=== PATIENT | male | born 1960 | race American Indian/Alaskan Native ===

== ENCOUNTER 2022-01-17 07:40 | Emergency (ER) | payer SELFPAY ==
[2022-01-17 11:36] LABS: Hematocrit 41.1 % (35.5-45.6); Hemoglobin 13.3 gm/dl (11.8-15.2); Mean Corpuscular HGB Conc 32 % (32-34); Mean Corpuscular Volume 92 fl (84-94); Platelet Count 190 K/mm3 (140-440); Red Blood Count 4.48 M/mm3 (3.65-5.03); Red Cell Distribution Width 13.1 % (13.2-15.2)
[2022-01-17 11:47] LABS: Alanine Aminotransferase 19 units/L (7-56); Albumin 4.1 g/dL (3.9-5); BUN/Creatinine Ratio 9; Blood Urea Nitrogen 7 mg/dL (9-20); Hemolysis Index 5
--- NOTE | 2022-01-17 11:49 | Cat Scan Report ---
CT HEAD WITHOUT CONTRAST INDICATION / CLINICAL INFORMATION: seizure after drug use. TECHNIQUE: All CT scans at this location are performed using CT dose reduction for ALARA by means of automated exposure control. COMPARISON: None available. FINDINGS: BRAIN PARENCHYMA: No acute intracranial hemorrhage. No evidence of recent infarct. No mass effect or midline shift. VENTRICULAR SYSTEM/EXTRA-AXIAL SPACES: Ventricles are normal for age. No extra-axial fluid collection . ORBITS: Normal as visualized. SKELETAL SYSTEM/SOFT TISSUES: Normal bones and soft tissues. PARANASAL SINUSES/MASTOID AIR CELLS: No significant abnormality. ADDITIONAL FINDINGS: None. IMPRESSION: 1. No acute intracranial abnormality. Signer Name: Mckinley Bergeron MD Signed: 01/17/2022 11:45 AM Workstation Name: [id number]
[2022-01-17 12:31] LABS: Band Neutrophils # (Manual) 0.2 K/mm3; Basophils % (Manual) 0 % (0.0-1.8); Eosinophils % (Manual) 0 % (0.0-4.3); Platelet Estimate Consistent w Auto; Total Cells Counted 100
--- NOTE | 2022-01-17 13:42 | Emergency Department Report ---
ED Altered Mental Status HPI - General Chief Complaint: Seizure Stated Complaint: SEIZURE/SUBSTANCE ABUSE/SEDETED Time Seen by Provider: 01/17/22 09:04 Source: patient, EMS Mode of arrival: Stretcher Limitations: No Limitations - History of Present Illness Initial Comments: 61-year-old male with no known past medical history presents to the hospital aft er a seizure. reports that this happened after using crack. Patient also drinks beer daily. No history of alcohol withdrawal tremors or seizures. Patient was postictal and combative upon EMS arrival and received IM Versed 5 mg. At time of my evaluation he denies any pain or symptoms. He is back to baseline. - Related Data Allergies Allergy/AdvReac Type Severity Reaction Status Date / Time No Known Allergies Allergy Verified 01/17/22 07:49 ED Review of Systems ROS: Stated complaint: SEIZURE/SUBSTANCE ABUSE/SEDETED Other details as noted in HPI Comment: All other systems reviewed and negative ED Past Medical Hx - Past Medical History Additional medical history: UNKNOWN - Social History Smoking Status: Unknown if ever smoked Substance Use Type: Cocaine ED Physical Exam - General Limitations: No Limitations - Other Other exam information: General: No acute distress Head: Atraumatic Eyes: normal appearance ENT: Moist mucous membranes Neck: Normal appearance, no midline tenderness Chest: Clear to auscultation bilaterally CV: Regular rate and rhythm Abdomen: Soft, normal bowel sounds, nontender, nondistended, no rebound or gua rding Back: Normal inspection Extremity: Normal inspection, full range of motion Neuro: Alert O x 3, no facial asymmetry, speech clear, no gross motor sensory deficit Psych: Appropriate behavior Skin: No rash ED Course Vital Signs 01/17/22 01/17/22 01/17/22 07:47 08:05 08:07 Temperature Pulse Rate 68 64 Respiratory 12 12 Rate Blood Pressure 100/52 112/55 [Left] O2 Sat by Pulse 99 96 95 Oximetry 01/17/22 13:46 Temperature 97.8 F Pulse Rate Respiratory Rate Blood Pressure [Left] O2 Sat by Pulse Oximetry - Lab Data Result diagrams: 01/17/22 10:23 01/17/22 10:23 Lab Results 01/17/22 01/17/22 01/17/22 Range/Units 10:23 10:23 10:23 WBC 5.4 (4.5-11.0) K/mm3 RBC 4.48 (3.65-5.03) M/mm3 Hgb 13.3 (11.8-15.2) gm/dl Hct 41.1 (35.5-45.6) % MCV 92 (84-94) fl MCH 30 (28-32) pg MCHC 32 (32-34) % RDW 13.1 L (13.2-15.2) % Plt Count 190 (140-440) K/mm3 Add Manual Diff Complete Total Counted 100 Seg Neuts % (Manual) 90.0 H (40.0-70.0) % Band Neutrophils % 3.0 % Lymphocytes % (Manual) 5.0 L (13.4-35.0) % Reactive Lymphs % (Man) 0 % Monocytes % (Manual) 2.0 (0.0-7.3) % Eosinophils % (Manual) 0 (0.0-4.3) % Basophils % (Manual) 0 (0.0-1.8) % Metamyelocytes % 0 % Myelocytes % 0 % Promyelocytes % 0 % Blast Cells % 0 % Nucleated RBC % Not Reportable Seg Neutrophils # Man 4.9 (1.8-7.7) K/mm3 Band Neutrophils # 0.2 K/mm3 Lymphocytes # (Manual) 0.3 L (1.2-5.4) K/mm3 Abs React Lymphs (Man) 0.0 K/mm3 Monocytes # (Manual) 0.1 (0.0-0.8) K/mm3 Eosinophils # (Manual) 0.0 (0.0-0.4) K/mm3 Basophils # (Manual) 0.0 (0.0-0.1) K/mm3 Metamyelocytes # 0.0 K/mm3 Myelocytes # 0.0 K/mm3 Promyelocytes # 0.0 K/mm3 Blast Cells # 0.0 K/mm3 WBC Morphology Not Reportable Hypersegmented Neuts Not Reportable Hyposegmented Neuts Not Reportable Hypogranular Neuts Not Reportable Smudge Cells Not Reportable Toxic Granulation Not Reportable Toxic Vacuolation Not Reportable Dohle Bodies Not Reportable Pelger-Huet Anomaly Not Reportable Jw Rods Not Reportable Platelet Estimate Consistent w auto Clumped Platelets Not Reportable Plt Clumps, EDTA Not Reportable Large Platelets Not Reportable Giant Platelets Not Reportable Platelet Satelliting Not Reportable Plt Morphology Comment Not Reportable RBC Morphology Not Reportable Dimorphic RBCs Not Reportable Polychromasia Not Reportable Hypochromasia Not Reportable Poikilocytosis Not Reportable Anisocytosis Not Reportable Microcytosis Not Reportable Macrocytosis Not Reportable Spherocytes Not Reportable Pappenheimer Bodies Not Reportable Sickle Cells Not Reportable Target Cells Not Reportable Tear Drop Cells Not Reportable Ovalocytes Not Reportable Helmet Cells Not Reportable [place] Bodies Not Reportable Tyro Rings Not Reportable Conneaut Cells Not Reportable Bite Cells Not Reportable Crenated Cell Not Reportable Elliptocytes Not Reportable Acanthocytes (Spur) Not Reportable Rouleaux Not Reportable Hemoglobin C Crystals Not Reportable Schistocytes Not Reportable Malaria parasites Not Reportable Deven Bodies Not Reportable Hem Pathologist Commnt No Sodium 138 (137-145) mmol/L Potassium 4.6 (3.6-5.0) mmol/L Chloride 105.1 (98-107) mmol/L Carbon Dioxide 26 (22-30) mmol/L Anion Gap 12 mmol/L BUN 7 L (9-20) mg/dL Creatinine 0.8 (0.8-1.3) mg/dL Estimated GFR > 60 ml/min BUN/Creatinine Ratio 9 % Glucose 83 (75-100) mg/dL Calcium 9.0 (8.4-10.2) mg/dL Magnesium 2.10 (1.7-2.3) mg/dL Total Bilirubin 0.20 (0.1-1.2) mg/dL AST 23 (5-40) units/L ALT 19 (7-56) units/L Alkaline Phosphatase 94 (35-129) units/L Total Protein 6.8 (6.3-8.2) g/dL Albumin 4.1 (3.9-5) g/dL Albumin/Globulin Ratio 1.5 % Plasma/Serum Alcohol 0.05 (0-0.07) % - EKG Data -: EKG Interpreted by Me (pvc's) EKG shows normal: sinus rhythm, intervals (pr 233), ST-T waves (no stemi) Rate: normal (61) - Radiology Data Radiology results: report reviewed CT HEAD WITHOUT CONTRAST INDICATION / CLINICAL INFORMATION: seizure after drug use. TECHNIQUE: All CT scans at this location are performed using CT dose reduction for ALARA by means of automated exposure control. COMPARISON: None available. FINDINGS: BRAIN PARENCHYMA: No acute intracranial hemorrhage. No evidence of recent in farct. No mass effect or midline shift. VENTRICULAR SYSTEM/EXTRA-AXIAL SPACES: Ventricles are normal for age. No extra- axial fluid collection. ORBITS: Normal as visualized. SKELETAL SYSTEM/SOFT TISSUES: Normal bones and soft tissues. PARANASAL SINUSES/MASTOID AIR CELLS: No significant abnormality. ADDITIONAL FINDINGS: None. IMPRESSION: 1. No acute intracranial abnormality. Critical Care Time: No Critical care attestation.: If time is entered above; I have spent that time in minutes in the direct care of this critically ill patient, excluding procedure time. ED Disposition Clinical Impression: Drug-induced seizure, Crack cocaine use, Daily consumption of alcohol Disposition: 01 HOME / SELF CARE / HOMELESS Is pt being admited?: No Does the pt Need Aspirin: No Condition: Stable Instructions: Seizure, Adult, [id number], Stimulant Use Disorder-Cocaine, Alcohol Use Disorder Additional Instructions: Stop drug abuse. Follow-up with your doctor or doctor/clinic provided. Return if symptoms worsen as indicated by your discharge instructions. Professional and Agency Contacts To help [facility] (03/12) [place] Crisis Line: Suicide Prevention Line: Crisis Text Line: Text ``START to 881308 Emergency: 911 Outpatient COMMUNITY Behavioral Health Resources: MART[facility]: [facility] [address] [place], [place] [address] SUBSTANCE ABUSE PROGRAMS: [facility]: Location: [place], [place] [facility] Address: [address] [place] [address] [id number] [facility]: Address: [address] [place] [address] [facility]: Address: [address] [place] [address] [facility]: Address: [address] [place] [address] Referrals: PRIMARY CAREMD [Primary Care Provider] - 3-5 Days
[2022-01-17 14:30] LABS: Amphetamine Screen,Urine Negative; Cannabinoid Screen,Urine Negative; Methadone Screen,Urine Negative; Opiate Screen,Urine Negative
[2022-01-17 14:42] LABS: Amorphous Crystals,Urine 2+; Bacteria,Urine 4+ /HPF (Negative); Hyaline Casts,Urine 109 /LPF; Mucus,Urine FEW /HPF; WBC,Urine < 1.0 /HPF (0.0-6.0)
[2022-01-17 14:43] LABS: Benzodiazepines Screen,Urine Positive; Cocaine Screen,Urine Positive
[2022-01-17 14:52] LABS: Color,Urine Straw (Yellow)
[2022-01-17 15:22] VITALS: BP 134/80
--- NOTE | 2022-01-18 10:33 | Electrocardiograph Report ---
[facility] Test Date: 2022-01-17 Test Time: 09:27:43 Pat Name: TAWANDA ROMERO Department: Room: Gender: M Clerk: CHUN : 1960 Requested By: ALPHONSO BELL Order Number: [id number] Reading MD: Ernesto Vazquez Measurements Intervals [place] Rate: 61 P: 17 NE: 233 QRS: 80 QRSD: 100 T: 58 QT: 482 QTc: 470 Interpretive Statements Sinus bradycardia Ventricular premature complex Prolonged NE interval No previous ECG available for comparison Electronically Signed On 01-18-2022 10:33:22 EDT by Ernesto Vazquez
== END 2022-01-17 15:27 | disposition home or self-care (01) ==
LOC: ED 07:40
DX: G40.509 Epileptic seizures related to external causes, not intractable, without status epilepticus (principal); F14.90 Cocaine use, unspecified, uncomplicated; Z72.89 Other problems related to lifestyle; Z79.899 Other long term (current) drug therapy
CPT/HCPCS: 36415; 70450; 80053; 80307; 80320; 81001; 83735; 85007; 85025; 93005; 99284; G0480